=== PATIENT | male | born 1980 | race Caucasian/White ===

== ENCOUNTER 2017-04-03 11:26 | Emergency (ER) | payer BC ==
[2017-04-03] MEDS ORDERED: ASPIRIN 81 MG TABLET, CHEWABLE PO ONE (11:34)
[2017-04-03] MEDS ORDERED: NORMAL SALINE 1000 ML 1,000 ML IV ONE (11:35)
[2017-04-03] MEDS ORDERED: NITROGLYCERIN 2% OINTMENT 1 GM PACKET TP ONE (11:35)
[2017-04-03 12:13] LABS: ABSOLUTE BASOPHILS # (AUTO) 0.1 10^3/uL (0.0-0.2); ABSOLUTE EOSINOPHILS # (AUTO) 0.1 10^3/uL (0.0-0.6); ABSOLUTE LYMPHOCYTES (AUTO) 2.8 10^3/uL (0.5-4.7); ABSOLUTE MONOCYTES (AUTO) 0.5 10^3/uL (0.1-1.4); ABSOLUTE NEUT (AUTO) 5.1 10^3/uL (1.7-8.2); BASOPHILS % (AUTO) 0.9 % (0-2); EOSINOPHILS % (AUTO) 0.8 % (0-6); HEMATOCRIT 43.6 % (37.9-51.0); HEMOGLOBIN 14.9 g/dL (13.5-17.0); HGB HCT DIFFERENCE 1.1; LYMPHOCYTES % (AUTO) 33.1 % (13-45); MEAN CORPUSCULAR HEMOGLOBIN 29.5 pg (27.0-33.4); MEAN CORPUSCULAR HGB CONC 34.2 g/dL (32.0-36.0); MEAN CORPUSCULAR VOLUME 86 fl (80-97); MONOCYTES % (AUTO) 5.4 % (3-13); RED BLOOD COUNT 5.05 10^6/uL (4.35-5.55); RED CELL DISTRIBUTION WIDTH 13.6 % (11.5-14.0); SEGMENTED NEUTROPHILS % (AUTO) 59.8 % (42-78); WHITE BLOOD COUNT 8.5 10^3/uL (4.0-10.5)
[2017-04-03 12:32] LABS: ALANINE AMINOTRANSFERASE 37 U/L (21-72); ALBUMIN 4.4 g/dL (3.5-5.0); ALKALINE PHOSPHATASE 83 U/L (38-126); ANION GAP 10 (5-19); ASPARTATE AMINO TRANSFERASE 31 U/L (17-59); BILIRUBIN,DIRECT 0.4 mg/dL (0.0-0.4); BILIRUBIN,TOTAL 0.6 mg/dL (0.2-1.3); BLOOD UREA NITROGEN 11 mg/dL (7-20); CALCIUM 9.9 mg/dL (8.4-10.2); CARBON DIOXIDE 26 mmol/L (22-30); CHLORIDE 106 mmol/L (98-107); CREATINE KINASE 149 U/L (55-170); CREATININE RESULT 0.83 mg/dL (0.52-1.25); GLUCOSE 90 mg/dL (75-110); LIPASE 112.2 U/L (23-300); MAGNESIUM 2.1 mg/dL (1.6-2.3); POTASSIUM 4.2 mmol/L (3.6-5.0); SODIUM 142.1 mmol/L (137-145); TOTAL PROTEIN 7.6 g/dL (6.3-8.2)
[2017-04-03 12:51] LABS: TROPONIN I < 0.012 ng/mL
--- NOTE | 2017-04-03 15:12 | EKG REPORT ---
SEVERITY:- ABNORMAL ECG - SINUS RHYTHM NONSPECIFIC INTRAVENTRICULAR CONDUCTION DELAY : Confirmed by: Clay Weston MD 03-Apr-2017 15:11:55
--- NOTE | 2017-04-03 15:12 | EKG REPORT ---
SEVERITY:- NORMAL ECG - SINUS RHYTHM : Confirmed by: Clay Weston MD 03-Apr-2017 15:12:02
--- NOTE | 2017-04-03 15:18 | ER Document Report ---
ED General - General TRAVEL OUTSIDE OF THE [place] IN LAST 30 DAYS: No - HPI Patient complains to provider of: chest pain <ELYSE CODY - Last Filed: 04/03/17 15:12> <BARON BERGMAN - Last Filed: 04/03/17 17:00> - General Chief Complaint: Chest Pain > 30 Stated Complaint: CHEST PAIN - HPI Notes: Patient coming in for left-sided chest pain started just prior to arrival. Patient denies any diaphoresis nausea vomiting shortness of breath. Patient states pain to go into his shoulder blade. Patient otherwise have a history of smoking social alcohol use. Denies family history. Denies any recent travel. 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 Patient denies any trauma (ELYSE CODY) - Related Data Allergies/Adverse Reactions: No Known Allergies Allergy (Unverified 04/03/17 12:24) Past Medical History - Social History Smoking Status: Current Every Day Smoker Chew tobacco use (# tins/day): No Frequency of alcohol use: None Drug Abuse: None Family History: Reviewed & Not Pertinent Pulmonary Medical History: Reports: Hx Asthma - Immunizations Hx Diphtheria, Pertussis, Tetanus Vaccination: Yes <ELYSE CODY - Last Filed: 04/03/17 15:12> Review of Systems - Review of Systems Constitutional: No symptoms reported EENT: No symptoms reported Cardiovascular: Chest pain Respiratory: No symptoms reported Gastrointestinal: No symptoms reported Genitourinary: No symptoms reported Male Genitourinary: No symptoms reported Musculoskeletal: No symptoms reported Skin: No symptoms reported Hematologic/Lymphatic: No symptoms reported Neurological/Psychological: No symptoms reported -: Yes All other systems reviewed and negative <ELYSE CODY - Last Filed: 04/03/17 15:12> Physical Exam - Vital signs Interpretation: Normal - General General appearance: Appears well, Alert - HEENT Head: Normocephalic, Atraumatic Eyes: Normal Pupils: PERRL - Respiratory Respiratory status: No respiratory distress Chest status: Nontender Breath sounds: Normal Chest palpation: Normal - Cardiovascular Rhythm: Regular Heart sounds: Normal auscultation Murmur: No - Abdominal Inspection: Normal Distension: No distension Bowel sounds: Normal Tenderness: Nontender Organomegaly: No organomegaly - Back Back: Normal, Nontender - Extremities General upper extremity: Normal inspection, Nontender, Normal color, Normal ROM , Normal temperature General lower extremity: Normal inspection, Nontender, Normal color, Normal ROM , Normal temperature, Normal weight bearing. No: Cristo's sign - Neurological Neuro grossly intact: Yes Cognition: Normal Orientation: AAOx4 Jose A Coma Scale Eye Opening: Spontaneous Jose A Coma Scale Verbal: Oriented Jose A Coma Scale Motor: Obeys Commands Rhodes Coma Scale Total: 15 Speech: Normal Motor strength normal: LUE, RUE, LLE, RLE Sensory: Normal - Psychological Associated symptoms: Normal affect, Normal mood - Skin Skin Temperature: Warm Skin Moisture: Dry Skin Color: Normal <ELYSE CODY - Last Filed: 04/03/17 15:12> Course - Laboratory Result Diagrams: 04/03/17 11:51 04/03/17 11:51 <ELYSE CODY - Last Filed: 04/03/17 15:12> - Laboratory Result Diagrams: 04/03/17 11:51 04/03/17 11:51 - EKG Interpretation by Me EKG shows normal: Sinus rhythm, Bronte, Intervals, QRS Complexes, ST-T Waves Rate: Normal Rhythm: NSR <BARON BERGMAN - Last Filed: 04/03/17 17:00> - Re-evaluation Re-evalutation: 04/03/17 15:13 Patient's pain did initially relieved with nitroglycerin Nitropaste was taken off a tension has not had any pain since that time. Discussed local cardiology will repeat another troponin at around the 5-6 hour shadi. EKG will be repeated time as well. 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 (ELYSE CODY) - Vital Signs Vital signs: Temp Pulse Resp BP Pulse Ox 18 132/80 H 99 04/03/17 16:01 04/03/17 16:01 04/03/17 16:01 Discharge <ELYSE CODY - Last Filed: 04/03/17 15:12> <BARON BERGMAN - Last Filed: 04/03/17 17:00> - Discharge Clinical Impression: Chest pain of uncertain etiology Condition: Good Disposition: HOME, SELF-CARE Instructions: Chest Pain of Unclear Cause ([facility]) Additional Instructions: At this time your EKG and laboratory studies did not show any critical etiology for your chest pain. I will recommend to continue to take aspirin 325 for the next few days. I did discuss her case with thermal cutting machine operator Jerica who does agree to see when follow-up. Please call his office on Wednesday for further evaluation. Forms: Return to Work Referrals: AKILAH BARTH NP [Primary Care Provider] - Follow up as needed ALEISHA DEAN MD [ACTIVE STAFF] - 04/05/17
[2017-04-03 17:47] VITALS: BP 132/61
--- NOTE | 2017-04-03 18:22 | EKG REPORT ---
SEVERITY:- NORMAL ECG - SINUS RHYTHM : Confirmed by: Clay Weston MD 03-Apr-2017 18:22:14
== END 2017-04-03 17:48 | disposition home or self-care (01) ==
LOC: ER 11:26
DX: R07.9 Chest pain, unspecified (principal); F17.200 Nicotine dependence, unspecified, uncomplicated
CPT/HCPCS: 93005; 99285; 96360; 36415; 82553; 82550; 83690; 83735; 85025; 80053; 84484; 85379; 71020; 93010; J7030